=== PATIENT | female | born 1990 | race Caucasian/White ===

== ENCOUNTER 2020-12-11 07:30 | Outpatient (CLI) | payer BC | END 2020-12-11 07:31 | disposition home or self-care (01) | LOC: BICULT 07:30 | PROVIDERS: ATTEND Internal Medicine Gastroenterology | DX: K21.9 Gastro-esophageal reflux disease without esophagitis (principal); R10.13 Epigastric pain; R11.2 Nausea with vomiting, unspecified; R16.0 Hepatomegaly, not elsewhere classified | CPT/HCPCS: 76705 ==